=== PATIENT | male | born 1990 | race African-American/Black ===

== ENCOUNTER 2023-05-23 00:29 | Emergency (ER) | payer SELFPAY ==
[~2023-05-23] VITALS: Ht 177.8 cm; Wt 88.0 kg
[2023-05-23] MEDS ORDERED: NAPR500T6 PO (02:10)
[2023-05-23 02:13] LABS: BASOPHILS # (AUTO) 0.1 K/UL (0.0-0.2); BASOPHILS % (AUTO) 0.9 % (0.0-2.0); EOSINOPHILS # (AUTO) 0.2 K/uL (0.0-0.7); HEMATOCRIT 36.3 % (36.7-47.1); HEMOGLOBIN 12.4 g/dL (12.5-16.3); LYMPHOCYTES % (AUTO) 32.5 % (20.5-51.5); MEAN CORPUSCULAR HEMOGLOBIN 32.1 uug (23.8-33.4); MEAN CORPUSCULAR HGB CONC 34 g/dL (32.5-36.3); MEAN CORPUSCULAR VOLUME 94.3 fL (73.0-96.2); MONOCYTES # (AUTO) 0.3 K/uL (0.1-1.30); MONOCYTES % (AUTO) 5.2 % (0.0-11.0); NEUTROPHILS # (AUTO) 3.5 K/uL (1.8-8.9); NEUTROPHILS % (AUTO) 58.4 % (38.5-71.5); PLATELET COUNT (AUTO) 243 K/uL (152-348); RED BLOOD CELL COUNT(AUTO) 3.85 MIL/uL (4.06-5.63); RED CELL DISTRIBUTION WIDTH 13.1 % (12.1-16.2)
[2023-05-23] MEDS ORDERED: HYDROCODONE/APAP 5-325MG TABLET PO ONE (02:15)
[2023-05-23 02:23] LABS: DIFFERENTIAL COMMENT 1
[2023-05-23] MEDS ORDERED: HYDROCODONE/APAP 5-325MG TABLET ONE (02:23)
[2023-05-23 02:28] LABS: CALCIUM 8.5 mg/dL (8.5-10.1); CREATININE 1.2 mg/dL (0.6-1.3); POTASSIUM 3.5 mmol/L (3.5-5.1)
[2023-05-23 02:34] LABS: ALBUMIN 3.5 g/dL (3.4-5.0); BILIRUBIN,TOTAL 0.4 mg/dL (0.2-1.0); TOTAL PROTEIN, SERUM 7.3 g/dL (6.4-8.2); URIC ACID 3.9 mg/dL (3.5-7.2)
[2023-05-23 04:50] VITALS: BP 144/103; TEMP 98.2; O2SAT 97
== END 2023-05-23 04:45 | disposition home or self-care (01) ==
LOC: ER 00:40
DX: M25.562 Pain in left knee (principal); F17.210 Nicotine dependence, cigarettes, uncomplicated; Z59.00 Homelessness unspecified; Z79.899 Other long term (current) drug therapy
CPT/HCPCS: 36415; 84550; 85025; A4606; A4663